=== PATIENT | female | born 1935 | race Caucasian/White ===

== ENCOUNTER 2018-04-27 01:53 | Emergency (ER) | payer MEDICARE, OTHER, SELFPAY ==
[2018-04-27 01:54] VITALS: BP 125/74; PULSE 76; RESP 15; TEMP 36.4; O2SAT 99; BMI 18.8
[2018-04-27 01:59] VITALS: O2SAT 96
--- NOTE | 2018-04-27 02:08 | CT_ITS ---
STUDY: CT FACIAL BONES WITHOUT CONTRAST REASON FOR EXAM: Female, 82 years old. FELL,RT SIDED JAW PAIN,DENIES LOC,RT FRONT JAW BRUISING,DENIES LOC RADIATION DOSAGE (If Supplied By Facility): CTDIvol = ( 29.38 ) mGy, DLP = ( 576.84 ) mGycm TECHNIQUE: The patient was scanned in a multi detector CT scanner. Sagittal and coronal images were reconstructed. Individualized dose optimization techniques were used for this CT. COMPARISON: None. FINDINGS: Normal soft tissue structures. Normal orbital hernández and orbital contents. Normal nasal bones and anterior nasal spine. Normal facial bones. There is no demonstrated fracture. Mild mucosal thickening of the ethmoid air cells. CT/Sinus/Facial Bone IMPRESSION: No acute injury of the facial bones. Electronically Signed: Daily Abraham MD at 3:41 EDT Tel , Service support ,
--- NOTE | 2018-04-27 02:08 | CT_ITS ---
STUDY: CT BRAIN WITHOUT CONTRAST REASON FOR EXAM: Female, 82 years old. FELL,RT SIDED JAW PAIN,DENIES LOC,BRUISING TO RT FRONT OF JAW,DENIES LOC RADIATION DOSAGE (If Supplied By Facility): CTDIvol = ( 44.99 ) mGy, DLP = ( 779.24 ) mGycm TECHNIQUE: Transaxial CT imaging of the brain was performed without administration of intravenous contrast material. Individualized dose optimization techniques were used for this CT. COMPARISON: None. FINDINGS: Normal soft tissue structures. Normal calvarium. Normal size ventricles and extra-axial spaces for the patient's age. There are areas of decreased attenuation within the white matter tracts of the supratentorial brain, consistent with microvascular disease changes. Normal basal ganglia and thalami. Normal brainstem. Normal cerebellum. There is no intracranial hemorrhage. There are no findings of an acute ischemic infarction. Normal visualized paranasal sinuses. CT/Brain/Head without Contrast IMPRESSION: Chronic involutional changes of the brain. Electronically Signed: Daily Abraham MD at 3:28 EDT Tel , Service support ,
--- NOTE | 2018-04-27 02:08 | ED.VISSUMM ---
- ER Visit Summary Date of Service: 04/27/18 Chief Complaint: Fall History of Present Illness: The patient is a 82 F mechanical fall at home at 1 AM. States woke up going to the restroom, when she stumbled falling hitting her chin on a dresser. Skin tear left forearm. No anticoagulation medications. History of lymphoma currently on immunotherapy for the past 6 months causing easy bruising. Followed by Dr. Gilliam. Tetanus was earlier this year. Mild pain right jaw line. No headache. No neck or back pain. No nausea or vomiting. Physical Examination: General: Alert and oriented ?3, no acute distress HEENT: Normocephalic, mild tenderness right mandibular, small ecchymosis right lower chin, no dental loosening. No trismus. Moist mucosa membranes Neck: supple, nontender. Cardiovascular: Regular rate and rhythm, no murmurs Respiratory: Normal breath sounds, symmetric, no distress Abdomen: Soft, nontender, nondistended Extremities: Nontender, no edema, pulses intact ?4 Neuro: no focal neurological deficits. Skin: Superficial skin tear volar aspect of forearm on the left. No active bleeding. Old ecchymosis along right lateral thigh and leg. Nontender to palpation. Skin intact. Test Results: CT head and facial bones: No acute process Emergency Department Course and Treatment: Patient no focal neurological deficits. Head injury with facial contusion, image studies were negative. Wound was cleansed and dressed by nursing. Wound care discussed. Supplies were sent home with patient. Follow-up with PCP. Treatment Plan: [] Disposition: Discharge Impression: 1. Closed head injury 2. Facial contusion 3. Left forearm skin tear This note was generated with [employer] dictation software. It may contain incorrect words, spelling, and punctuation that were not noted in review of the chart prior to signing ED Disposition - Plan for ED Patient: Disposition: Home or Assisted Living Chief Complaint: Fall Diagnosis: Closed head injury, Facial contusion, Skin tear of left forearm without complication Instructions: ED Contusion Face, ED Avulsion Dermal Referrals: Tariq Martinez MD [Primary Care Provider] - 3-5 Days
--- NOTE | 2018-04-27 02:11 | ED.DCSUM_ITS ---
- ER Visit Summary Date of Service: 04/27/18 Chief Complaint: Fall History of Present Illness: The patient is a 82 F mechanical fall at home at 1 AM. States woke up going to the restroom, when she stumbled falling hitting her chin on a dresser. Skin tear left forearm. No anticoagulation medications. History of lymphoma currently on immunotherapy for the past 6 months causing easy bruising. Followed by Dr. Gilliam. Tetanus was earlier this year. Mild pain right jaw line. No headache. No neck or back pain. No nausea or vomiting. Physical Examination: General: Alert and oriented ?3, no acute distress HEENT: Normocephalic, mild tenderness right mandibular, small ecchymosis right lower chin, no dental loosening. No trismus. Moist mucosa membranes Neck: supple, nontender. Cardiovascular: Regular rate and rhythm, no murmurs Respiratory: Normal breath sounds, symmetric, no distress Abdomen: Soft, nontender, nondistended Extremities: Nontender, no edema, pulses intact ?4 Neuro: no focal neurological deficits. Skin: Superficial skin tear volar aspect of forearm on the left. No active bleeding. Old ecchymosis along right lateral thigh and leg. Nontender to palpation. Skin intact. Test Results: CT head and facial bones: No acute process Emergency Department Course and Treatment: Patient no focal neurological deficits. Head injury with facial contusion, image studies were negative. Wound was cleansed and dressed by nursing. Wound care discussed. Supplies were sent home with patient. Follow-up with PCP. Treatment Plan: [] Disposition: Discharge Impression: 1. Closed head injury 2. Facial contusion 3. Left forearm skin tear This note was generated with [employer] dictation software. It may contain incorrect words, spelling, and punctuation that were not noted in review of the chart prior to signing ED Disposition - Plan for ED Patient: Disposition: Home or Assisted Living Chief Complaint: Fall Diagnosis: Closed head injury, Facial contusion, Skin tear of left forearm without complic ation Instructions: ED Contusion Face, ED Avulsion Dermal Referrals: Tariq Martinez MD [Primary Care Provider] - 3-5 Days
[2018-04-27] MEDS: BACITRACIN 15 GM Tube 1 APPLIC TOPICAL (03:03)
[2018-04-27 04:26] VITALS: BP 121/57; PULSE 70; RESP 16; O2SAT 95
== END 2018-04-27 04:27 | disposition home or self-care (01) ==
PROVIDERS: Emergency Provider Emergency Medicine; Family Provider Family Medicine; PCP Family Medicine
DX: S00.83XA Contusion of other part of head, initial encounter (principal); S51.812A Laceration without foreign body of left forearm, initial encounter; W08.XXXA Fall from other furniture, initial encounter; Y93.9 Activity, unspecified; Y92.009 Unspecified place in unspecified non-institutional (private) residence as the place of occurrence of the external cause; Y99.9 Unspecified external cause status; Z85.79 Personal history of other malignant neoplasms of lymphoid, hematopoietic and related tissues
CPT/HCPCS: 70450; 70486; 99282

== ENCOUNTER 2020-03-08 15:18 | Emergency (ER) | payer MEDICARE, OTHER, SELFPAY ==
[2020-03-08 15:21] VITALS: BP 142/63; PULSE 89; RESP 16; TEMP 37.1; O2SAT 97; BMI 17.6
--- NOTE | 2020-03-08 17:31 | CT_ITS ---
STUDY: CT CHEST WITH CONTRAST REASON FOR EXAM: Female, 84 years old. STIFF NECK, RECENT BUG BITES, LYMPHOMA 7 YEARS AGO RADIATION DOSAGE (If Supplied By Facility): CTDIvol = ( 8.59 ) mGy, DLP = ( 347.92 ) mGycm TECHNIQUE: Transaxial imaging was performed following intravenous administration of IV 100mL Isovue-300. Individualized dose optimization techniques were used for this CT. COMPARISON: None. FINDINGS: Hyperexpansion of the lungs. Widespread interstitial prominence most likely very mild fibrosis. Probable small focal scarring in the left apex. Mild focal scarring in the lateral right middle lobe. No acute infiltrates. No effusions. Normal heart and pericardium. Sternal cerclage wires are present from a prior sternotomy. Normal mediastinum. Normal hilar regions. Normal enhanced pulmonary arteries. Normal aorta arch and descending thoracic aorta. Normal osseous structures. There is no demonstrated abnormality of the visualized upper abdomen. CT/Chest WITH Contrast IMPRESSION: No acute chest disease. 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 Electronically Signed: Jesse Moralez MD at 18:52 EDT , Service support ,
--- NOTE | 2020-03-08 17:32 | CT_ITS ---
STUDY: CT SOFT TISSUE NECK WITH CONTRAST REASON FOR EXAM: Female, 84 years old. NECK stiff, RECENT BUG BITES, LYMPHOMA 7 YEARS AGO RADIATION DOSAGE (If Supplied By Facility): CTDIvol = ( 8.59 ) mGy, DLP = ( 347.92 ) mGycm TECHNIQUE: The patient was scanned in a multi-detector CT scanner. High resolution transaxial imaging was performed following intravenous administration of IV 100mL Isovue-300. Sagittal and coronal images were reconstructed. Individualized dose optimization techniques were used for this CT. COMPARISON: None. FINDINGS: Limited by metal artifact from dental work and also a long cervical spine buttress plate. Normal bilateral parotid glands. Normal bilateral felt hat pouncing operator hand spaces. Normal bilateral parapharyngeal spaces. Normal bilateral carotid spaces. Normal bilateral sublingual and submandibular glands and spaces. Normal visualized nasopharynx. Normal retropharyngeal space. Normal perivertebral space. Normal visualized bilateral faucial tonsils. The visualized tongue, tongue base and oropharynx are normal. The visualized cervical lymph nodes (levels I-) are within normal size limits, and maintain normal morphology. There is no demonstrated solid or cystic mass lesion. There is no abnormal contrast enhancement. Normal epiglottis, bilateral vallecula and hypopharynx. The pre-epiglottic and paraglottic adipose spaces are normal. Normal visualized bilateral piriform sinuses, aryepiglottic folds, vocal cords, and arytenoid-cricoid articulations. Normal subglottic trachea. Normal bilateral lobes of the thyroid gland. Normal visualized pulmonary apices. Normal visualized paranasal sinuses. There is multilevel degenerative and postoperative changes of the cervical spine. CT/Soft Tissue Neck WITH Contrast IMPRESSION: Limited by relatively extensive metal artifact. No gross acute abnormalities, masses or adenopathy. Electronically Signed: Jesse Moralez MD at 18:54 EDT , Service support ,
[2020-03-08 17:54] LABS: Absolute Lymphocyte Count 2.74 X10^3/uL (0.83-4.51); Absolute Neutrophil Count 3.7 X10^3/uL (2.0-7.7); Basophil# 0.04 X10^3/uL; Basophil% 0.5 % (0-1); Eosinophils% 2.7 % (0-5); Hematocrit 40.3 % (37-47); Hemoglobin 13.4 g/dL (12.0-15.0); Lymphocyte # 2.74 X10^3/ul (4.0); Lymphocyte % 36.4 % (19-41); Mean Corp Hgb Conc 33.3 g/dL (32-36); Mean Corpuscular Hgb 31.8 pg (27.0-32.0); Mean Corpuscular Volume 95.7 fL (81-99); Mean Platelet Vol. 10.2 fl (6.2-12.0); Monocyte# 0.76 X10^3/uL; Monocyte% 10.1 % (0-10); NRBC Flagged by Analyzer 0 % (0-5); Neutrophil # 3.73 X10^3/uL (2.7-7.7); Neutrophil % 49.6 % (47-70); Platelet Count 211 K/mm3 (150-450); RBC Distribution Width CV 13.2 % (11.6-14.6); RBC Distribution Width SD 46.6 fl (35.1-43.9); Red Blood Count 4.21 M/mm3 (4.2-5.4); White Blood Count 7.5 K/mm3 (4.4-11.0)
--- NOTE | 2020-03-08 17:55 | ED.VIS.GEN ---
History of Present Illness Chief Complaint: Other, Pain/Inj Informant: Patient, Family Narrative: Patient is an 84-year-old female with a history of lymphoma who presents to the emergency department for bug bites over her neck and body. She also noticed masses on her left side of her neck and left upper chest. She states that she was rubbing cream on her neck and noticed this. She has never noticed these before in the past. Her neck has been very stiff. It initially was a 10 out of 10 pain but has been slowly declining. Dates that her and her have been getting multiple bug bites at their vacation home. They think that they are no CM's. He did not have any tick bites that she is known of. No skin rashes at any of the bite sites except for very mild erythema spots. She denies any headache, vision changes. No chest pain or shortness of breath. No fevers or chills. No abdominal pain or nausea/vomiting. No change in bowel habits. She was sent in by her PCP/oncologist as she is supposed to undergo chemotherapy tomorrow and wanted to get this checked on. Past Medical History - Allergies and Home Meds Allergies/Adverse Reactions: Allergies codeine Allergy (Verified 03/08/20 15:24) Hives hydrocodone Adverse Reaction (Verified 03/08/20 15:24) Nausea/Vom/Diarrhea meperidine HCl [From Demerol] Adverse Reaction (Verified 03/08/20 15:24) Other Primary Care Physician: Tariq Martinez MD [Primary Care Provider] - 2 Days Prior records reviewed: Yes Past Medical History: - - Lymphoma Smoking Status: Former smoker Review of Systems All systems negative except as indicated General: Denies: Chills, Fever, Sweats Eyes: Denies: Visual changes - bilaterally, Diplopia ENT: Denies: Rhinorrhea, Sore throat Cardiovascular: Denies: Chest pain, Palpitations Respiratory: Denies: Dyspnea, Cough, Dyspnea on exertion Gastrointestinal: Denies: Abdominal pain, Nausea, Vomiting, Diarrhea Genitourinary: Denies: Dysuria, Hematuria, Frequency Musculoskeletal: Reports: Neck pain, Swelling - Neck. Denies: Back pain, Extremity Pain Skin: Denies: Rash, Wounds Neurological: Denies: Headache, Weakness, Numbness Physical Exam Vital Signs/Narrative: Vital Signs Temp Pulse Resp BP Pulse Ox 08/10/20 15:21 98.8 F 89 16 142/63 H 97 Inital Vital Signs reviewed: Yes General: Cachectic, No Acute Distress Head: Normocephalic, Atraumatic Eyes: Perrl, EOMI ENT: Moist mucous membranes, No rhinorrhea Neck: - - There are multiple masses on the left side of the neck that are firm, nontender. Do not feel mobile. Neck otherwise is supple. Cardiovascular: Regular rate, Regular rhythm, No murmurs Respiratory: No distress, CTA bilaterally, Chest nontender Abdomen: Soft, Nontender, Nondistended, Normal bowel sounds Back: Nontender, Normal Inspection Extremities: Nontender, No edema Skin: Normal color, - - Small specks of erythema that patient claims to be bug bites. No erythema migrans appreciated. Petechiae present. Neurological: Alert, Oriented x3, Cranial nerves II-XII grossly intact, Normal Strength, Normal Sensation Psychological: Normal affect, Normal Mood Diagnostic/Tx/Re-eval - Medical Decision Making Patient presents emerge department for neck masses. Does have a history of lymphoma. This initially was discovered as she had multiple bug bites and is rubbing lotion on her neck. She has been complaining of some neck pain. Basic lab work obtained along with CT scan of the chest/neck. Patient's lab work revealed a mildly low sodium. Otherwise no significant acute abnormalities. CT scan did not show any new acute masses. She did not have any seen ticks around her any tick attachments. Do not feel that this is Lyme's disease. No rashes on physical exam. At this time will discharge home in stable condition. She is to follow-up with her PCP. I did discuss return precautions including any headache, vision changes, photophobia or any fevers with her neck pain. She does feel like she might of slept on it funny causing the neck pain. This does seem musculoskeletal but otherwise supple. Will discharge home in stable condition. She understands and is agreeable with this plan. ED Disposition - Plan for ED Patient: Disposition: Home or Assisted Living Diagnosis: Neck pain, Bug bite Instructions: ED Neck Pain, ED Insect Bite Referrals: Tariq Martinez MD [Primary Care Provider] - 2 Days
[2020-03-08 18:10] LABS: Anion Gap 6 (5-15); BUN 16 mg/dL (7-18); BUN/Creat Ratio 25.8 RATIO (10-20); Calcium,Total 8.6 mg/dL (8.5-10.1); Chloride 99 mmol/L (98-107); Creatinine, Serum 0.62 mg/dL (0.55-1.02); EST Glomerular Filtration Rate 98 mL/min (>60); Est Glom Filt Rate - Afr Amer 119 mL/min (>60); Estimated Creatinine Clearance 31.84 ml/min; Glucose 88 mg/dL (74-106); Potassium 3.6 mmol/L (3.5-5.1); Sodium Level 131 mmol/L (136-145)
[2020-03-08 19:17] VITALS: BP 123/75; PULSE 80; RESP 16; O2SAT 98
== END 2020-03-08 19:18 | disposition home or self-care (01) ==
PROVIDERS: Emergency Provider Emergency Medicine; PCP Family Medicine
DX: S10.96XA Insect bite of unspecified part of neck, initial encounter (principal); R22.1 Localized swelling, mass and lump, neck; W57.XXXA Bitten or stung by nonvenomous insect and other nonvenomous arthropods, initial encounter; J44.9 Chronic obstructive pulmonary disease, unspecified; M43.6 Torticollis; Z85.72 Personal history of non-Hodgkin lymphomas; Z87.891 Personal history of nicotine dependence; Z88.5 Allergy status to narcotic agent
CPT/HCPCS: 70491; 71260; 80048; 85025; 99284; Q9967; A4216

== ENCOUNTER 2020-06-22 08:53 | Day surgery (SDC) | payer MEDICARE, OTHER, SELFPAY ==
--- NOTE | 2020-06-22 09:02 | EKG12_ITS ---
Test Reason : PRE OP Blood Pressure : / mmHG Vent. 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
[2020-06-22 09:26] VITALS: BP 120/58; PULSE 80; RESP 16; TEMP 36.4; O2SAT 100; BMI 18.0
[2020-06-22 09:27] LABS: Anion Gap 4 (5-15); BUN 13 mg/dL (7-18); BUN/Creat Ratio 22.3 RATIO (10-20); Calcium,Total 9.1 mg/dL (8.5-10.1); Chloride 102 mmol/L (98-107); Creatinine, Serum 0.58 mg/dL (0.55-1.02); EST Glomerular Filtration Rate 105 mL/min (>60); Est Glom Filt Rate - Afr Amer 127 mL/min (>60); Glucose 85 mg/dL (74-106); Potassium 3.7 mmol/L (3.5-5.1); Sodium Level 135 mmol/L (136-145)
[2020-06-22] MEDS: Ciprofloxacin 0.3% 2.5ml Bottle 1 DRP (10:59)
[2020-06-22 11:13] VITALS: BP 120/58; BP 96/50; PULSE 81; RESP 14; TEMP 36.5; O2SAT 97
[2020-06-22 11:15] VITALS: BP 100/53; BP 120/58; PULSE 81; RESP 16; O2SAT 94
[2020-06-22 11:30] VITALS: BP 109/64; BP 120/58; PULSE 90; RESP 14; TEMP 36.7; O2SAT 98
--- NOTE | 2020-06-22 11:49 | DCINST_ITS ---
You will use the following diet at home:: No restrictions Your food should be the consistency of: Regular Discharge Activity: Return to Normal Activity Call your doctor if your incision/area has: Increased Pain/ Swelling Allergies/Adverse Reactions: Allergies codeine Allergy (Verified 03/08/20 15:24) Hives hydrocodone Adverse Reaction (Verified 03/08/20 15:24) Nausea/Vom/Diarrhea meperidine HCl [From Demerol] Adverse Reaction (Verified 03/08/20 15:24) Other Medications to take at Discharge Oxycodone HCl/Acetaminophen [Percocet 5/325] 1 - 2 tablet PO Q4H PRN PRN #20 tablet 06/20/14 Albuterol IH (ProAir) [Proair Hfa (SP)Vent Pts] 1 - 2 puff INHALATION Q4H PRN PRN 06/14/20 Fluticasone/Salmeterol [Advair Hfa 115-21 Mcg Inhaler] 2 puff INHALATION BID 06/14/20 Primary Care Physician: Tariq Martinez MD [Primary Care Provider] - Test Results: Test results from this visit will be discussed in further detail at your follow- up appointment, if applicable. Please Follow Up With: Herve Grossman MD When: 3 weeks
[2020-06-22] MEDS: Acetaminophen 325 MG Tablet 650 MG PO (11:51)
[2020-06-22 12:30] VITALS: BP 120/58
--- NOTE | 2020-06-22 15:09 | PCM.OPRPT ---
Problem List (1) Chronic serous otitis media of both ears Status: Chronic Report of Operation Date of Procedure: 06/22/20 Pre-Operative Diagnosis: chronic serous otitis media Post-Operative Diagnosis: chronic serous otitis media Surgery/Procedure Performed:: placement of pressure equalization tubes, right and left ear Type of Anesthesia:: General Description of Procedure: on the day of the procedure, after appropriate informed consent was obtained, the patient was brought to the operating room and placed in supine position on the operating table. she was placed under general mask anesthesia by the anesthesiologist. the left ear was examined with the binocular operating microscope. a speculum was placed. the tympanic membrane was viewed in its entirety and found to be intact. a radial myringotomy was made and a T tube was placed. floxin otic drops were instilled. the right ear was examined with the binocular operating microscope. a speculum was placed. the tympanic membrane was viewed in its entirety and found to be intact. a radial myringotomy was made and a T tube was placed. floxin otic drops were instilled. the patient was awoken from anesthesia and transferred to the PACU in stable condition.
== END 2020-06-22 12:32 | disposition home or self-care (01) ==
LOC: SDC 08:54 → AC 08:54
PROVIDERS: PCP Family Medicine; Referring Provider Otolaryngology; Visit Provider Otolaryngology
PROC: (CPT 69436; principal; 2020-06-22 10:25)
DX: H65.23 Chronic serous otitis media, bilateral (principal); J45.909 Unspecified asthma, uncomplicated; Z79.899 Other long term (current) drug therapy; Z85.72 Personal history of non-Hodgkin lymphomas; Z85.828 Personal history of other malignant neoplasm of skin; Z20.828 Contact with and (suspected) exposure to other viral communicable diseases
CPT/HCPCS: 00126; 69436; 36415; 80048; 87426; 93005; C9803; J7120

== ENCOUNTER 2021-03-29 11:15 | Emergency (ER) | payer MEDICARE, OTHER, SELFPAY ==
[2021-03-29 11:15] VITALS: BP 135/60; PULSE 87; RESP 16; TEMP 36.2; O2SAT 99; BMI 17.3
--- NOTE | 2021-03-29 11:33 | EX.ED.DYSGE1 ---
HPI History of Present Illness Chief Complaint: Wound Informant: patient Narrative Narrative: Patient is an 85-year-old female who presents to the emergency department for skin tear to left mayo. She states that just prior to arrival she dropped a piece of cardboard onto her leg and caused the skin to tear off. She denies being on any blood thinners. She is on chemotherapy for history of leukemia. She denies any other injury. Bleeding controlled on arrival to the ED. She has been able to ambulate on the leg without difficulty. [facility] Medical History (Updated 03/29/21 @ 11:[address] Conrad Velasco DO) Asthma Lymphoma Home Medications oxycodone-acetaminophen 1 - 2 tab PO Q4H PRN PRN #20 tab 06/20/14 [Rx Last Taken Unknown] albuterol sulfate 1 - 2 puff INHALATION Q4H PRN PRN 06/14/20 [History Last Taken Unknown] fluticasone propion-salmeterol 2 puff INHALATION BID 06/14/20 [History Last Taken Unknown] cephalexin 500 mg PO Q6H 3 Days #12 cap 03/29/21 [Rx Last Taken Unknown] Allergy/AdvReac Type Severity Reaction Status Date / Time codeine Allergy Hives Verified 03/29/21 11:17 hydrocodone AdvReac Nausea/Vom/ Verified 03/29/21 11:17 Diarrhea meperidine HCl [From Demerol] AdvReac Other Verified 03/29/21 11:17 Social History Smoking Status: Never smoker ROS ROS ED Constitutional Constitutional ED: Denies chills or fever(s) ENT ENT ED: Denies epistaxis Cardiovascular Cardiovascular: Denies chest pain Respiratory/Chest Respiratory/Chest: Denies cough or dyspnea Gastrointestinal Gastrointestinal: Denies abdominal pain, nausea or vomiting Musculoskeletal Musculoskeletal: Denies back pain or neck pain Integumentary Reports other Details: Skin tear Neurologic Neurologic: Denies weakness EXAM Physical Exam Const Vital Signs: 03/29/21 11:15 Temperature 97.2 F L Temperature Source Temporal Pulse Rate 87 Respiratory Rate 16 Blood Pressure 135/60 H Blood Pressure Mean 85 Pulse Ox 99 Oxygen Delivery Method Room Air Positive well developed General Appearance ED: well developed and NAD HEENT Reports normocephalic and head/scalp atraumatic Eyes PERRL and EOMs intact bilaterally Neck supple Chest Wall inspection of chest normal Resp normal respiratory effort and clear to auscultation bilaterally Auscultation: Negative for rales, rhonchi or wheezes Cardio regular rate, regular rhythm and no murmurs Extremity normal to inspection General Extremety ED: Negative for edema or tenderness General Extremity: Negative for edema Neuro Sensorium / Orientation: alert Motor Exam: strength 5/5 throughout Psych mental status grossly normal Skin Skin Narrative: Skin tear to left anterior region. This extends 10 cm in an upside down U-shape. No active bleeding or foreign body appreciated. MDM MDM MDM Narrative Medical decision making narrative: Patient presents to the emergency department for skin tear to left mayo. This is cleaned out and repaired using Steri-Strips. The area was irrigated. It did require 15 Steri-Strips. Patient is to monitor for evidence of infection. She was very concerned because each time she has had a cut on her skin she has developed cellulitis. Given this fact she will be put on Keflex as she is immunocompromise. She is to follow-up with her PCP. Return precautions are reviewed with her. She understands and is agreeable with this plan. All questions answered. Discharge Plan Triage Chief Complaint: Wound ED Provider: Conrad Velasco Dx/Rx/DC Orders Clinical Impression: Skin tear of left lower leg without complication Instructions: ED Skin Avulsion Prescriptions: New cephalexin 500 mg capsule 500 mg PO Q6H 3 Days Qty: 12 RF: 0 No Action oxycodone-acetaminophen 1 TABLET tablet 1 - 2 tab PO Q4H PRN PRN (Reason: Pain) Qty: 20 RF: 0 albuterol sulfate 1 PUFF inhaler 1 - 2 puff INHALATION Q4H PRN PRN (Reason: Wheezing) RF: 0 fluticasone propion-salmeterol 1 PUFF inhaler 2 puff INHALATION BID RF: 0 Primary Care Provider: Tariq Martinez Referrals: Tariq Martinez MD [Primary Care Provider] - 5-7 Days Disposition Disposition: Home, Self Care Discharge Date/Time: 03/29/21 12:39
[2021-03-29] MEDS: Diphth,Pertuss(Acell),Tet Vac 0.5 ML Vial IM (12:11)
[2021-03-29] MEDS: Cephalexin 250 MG Capsule 500 MG PO (12:12)
== END 2021-03-29 12:39 | disposition home or self-care (01) ==
LOC: ED 11:58
PROVIDERS: Emergency Provider Emergency Medicine; PCP Family Medicine
DX: S81.812A Laceration without foreign body, left lower leg, initial encounter (principal); W22.8XXA Striking against or struck by other objects, initial encounter; Y92.9 Unspecified place or not applicable; Y99.9 Unspecified external cause status; Z85.6 Personal history of leukemia; J45.909 Unspecified asthma, uncomplicated; Z79.51 Long term (current) use of inhaled steroids; Z23 Encounter for immunization
CPT/HCPCS: 90471; 90715; 99283